=== PATIENT | female | born 1965 | race Caucasian/White ===

== ENCOUNTER → 2019-05-25 | Outpatient (CLI) | payer MEDICARE | LOC: M.CT 13:15 | DX: K76.0 Fatty (change of) liver, not elsewhere classified (principal); J84.10 Pulmonary fibrosis, unspecified; Z90.49 Acquired absence of other specified parts of digestive tract; Z90.710 Acquired absence of both cervix and uterus; K86.89 Other specified diseases of pancreas; K57.30 Diverticulosis of large intestine without perforation or abscess without bleeding; K56.41 Fecal impaction; K42.9 Umbilical hernia without obstruction or gangrene ==